=== PATIENT | female | born 1945 | race Caucasian/White ===

== ENCOUNTER 2016-06-19 16:24 | Inpatient (IN) | payer MEDICARE, MEDICAID ==
[~2016-06-19] VITALS: Ht 167.6 cm; Wt 80.7 kg
[2016-06-19] MEDS ORDERED: ONDANSETRON 4 MG/2 ML (SDV) Z0FRAN IVP PRN (16:45)
[2016-06-19] MEDS ORDERED: ACETAMINOPHEN 500 MG TAB (TYLENOL) PO PRN (16:45)
--- OUTSIDE RECORDS SUMMARY | 2016-06-19 18:21 | XMS REPORT | Continuity of Care Document ---
Author Author [facility] Address Unknown Phone Unavailable Allergies Medications Problems Procedures Results Encounters ACCT No. Visit Date/Time Discharge Status Pt. Type Provider Facility Loc./Unit Complaint [id number] 02/14/2015 11:56:18 02/14/2015 23: 59:59 CLS Outpatient Nohemi Cline [id number] 04/27/2014 08:45:00 04/27/2014 23: 59:59 CLS Outpatient Blanche Mckinney [id number] 04/04/2015 16:30:14 ACT Outpatient Terrence Acevedo [id number] 03/31/2015 15:09:03 ACT Outpatient Blanche Mckinney
[2016-06-19] MEDS ORDERED: CATHETER FLUSH 10 ML SYR IV PRN (18:30)
[2016-06-19 18:42] VITALS: BP 111/62
--- NOTE | 2016-06-19 18:52 | Diagnostic Imaging Report ---
INDICATION: Respiratory distress. FINDINGS: The heart is enlarged with some prominence of the central vessels. There is perihilar mixed interstitial and airspace opacity with crowding of the lung markings and a poor inspiratory volume. There is a suggestion of at least small bilateral effusions with no pneumothorax. IMPRESSION: Poor inspiratory volume; however, there is a suggestion of a failure pattern or sequelae of hypervolemia with suspicion for perihilar edema, cardiomegaly, and likely tiny pleural effusions. Dictated by: Dictated on workstation # [id number]
[2016-06-19 19:00] VITALS: BP 111/68
[2016-06-19] MEDS: DILTIAZEM DRIP 100 MG in SODIUM CHLORIDE (ADD-VANTAGE) 100 ML IV SCH (19:08)
[2016-06-19] MEDS: NS IV 1000 ML 1,000 ML IV SCH (19:08)
[2016-06-19 20:00] VITALS: BP 105/84
[2016-06-19 20:44] LABS: BASOPHILS % (AUTO) 0 % (0-10); EOSINOPHILS % (AUTO) 0 % (0-10); LYMPHOCYTES # (AUTO) 1.3 X 10^3 (1.0-4.0); LYMPHOCYTES % (AUTO) 15 % (12-44); MEAN CORPUSCULAR HEMOGLOBIN 27 PG (25-34); MEAN CORPUSCULAR HGB CONC 33 G/DL (32-36); MEAN CORPUSCULAR VOLUME 80 FL (80-99); MEAN PLATELET VOLUME 9.7 FL (7.4-10.4); MONOCYTES # (AUTO) 0.8 X 10^3 (0.0-1.0); MONOCYTES % (AUTO) 10 % (0-12); NEUTROPHILS # (AUTO) 6.4 X 10^3 (1.8-7.8); NEUTROPHILS % (AUTO) 76 % (42-75); PLATELET COUNT 323 10^3/uL (130-400); RED BLOOD COUNT 4.12 10^6/uL (4.35-5.85); RED CELL DISTRIBUTION WIDTH 16.3 % (10.0-14.5); WHITE BLOOD COUNT 8.5 10^3/uL (4.3-11.0)
[2016-06-19 20:56] LABS: INR 3.1 (0.8-1.4); PROTHROMBIN TIME PATIENT 31.8 SEC (12.2-14.7)
[2016-06-19 21:00] VITALS: BP 125/79
[2016-06-19] MEDS: inSUlin ASPART (NovoLOG) 1 UNIT/0.01 ML (CHARGE PER UNIT) SC SCH (21:00)
[2016-06-19 21:03] LABS: ALBUMIN 3.4 G/DL (3.2-4.5); BILIRUBIN,TOTAL 0.8 MG/DL (0.1-1.0); CALCIUM 8.3 MG/DL (8.5-10.1); CREATININE SERUM 1.77 MG/DL (0.60-1.30); POTASSIUM 4.5 MMOL/L (3.6-5.0); TOTAL PROTEIN 6.8 G/DL (6.4-8.2)
[2016-06-19 22:00] VITALS: BP 129/88
[2016-06-19 23:00] VITALS: BP 95/68
[2016-06-20] VITALS (22 sets, daily range): BP systolic 89–148; BP diastolic 47–121
[2016-06-20] MEDS: NS IV 1000 ML 1,000 ML IV SCH ×2 (02:19→13:20)
[2016-06-20 02:31] LABS: KETONES,URINE 1+ (NEGATIVE); LEUKOCYTE ESTERASE ,URINE 3+ (NEGATIVE); NITRITE,URINE NEGATIVE (NEGATIVE); PH,URINE 7 (5-9); PROTEIN,URINE 4+ (NEGATIVE); UROBILINOGEN,URINE 4 MG/DL (NORMAL)
[2016-06-20 02:44] LABS: BILIRUBIN,URINE 1+ (NEGATIVE); WBC,URINE 50-100 /HPF
[2016-06-20 04:30] LABS: BASOPHILS % (AUTO) 0 % (0-10); EOSINOPHILS # (AUTO) 0.1 10^3/uL (0.0-0.3); EOSINOPHILS % (AUTO) 1 % (0-10); LYMPHOCYTES # (AUTO) 1.1 X 10^3 (1.0-4.0); LYMPHOCYTES % (AUTO) 18 % (12-44); MEAN CORPUSCULAR HEMOGLOBIN 27 PG (25-34); MEAN CORPUSCULAR HGB CONC 34 G/DL (32-36); MEAN CORPUSCULAR VOLUME 79 FL (80-99); MEAN PLATELET VOLUME 10.1 FL (7.4-10.4); MONOCYTES # (AUTO) 0.7 X 10^3 (0.0-1.0); MONOCYTES % (AUTO) 12 % (0-12); NEUTROPHILS # (AUTO) 4.3 X 10^3 (1.8-7.8); NEUTROPHILS % (AUTO) 70 % (42-75); PLATELET COUNT 322 10^3/uL (130-400); RED BLOOD COUNT 3.87 10^6/uL (4.35-5.85); WHITE BLOOD COUNT 6.1 10^3/uL (4.3-11.0)
[2016-06-20 04:51] LABS: CALCIUM 8.2 MG/DL (8.5-10.1); CREATININE SERUM 1.72 MG/DL (0.60-1.30); MAGNESIUM 1.3 MG/DL (1.8-2.4); PHOSPHORUS 4.9 MG/DL (2.3-4.7); POTASSIUM 4.1 MMOL/L (3.6-5.0)
[2016-06-20] MEDS: KCL 20 MEQ TAB (K-DUR) PO SCH (05:03)
[2016-06-20] MEDS: POTASSIUM CL 10MEQ/50ML IVPB 50 ML IV SCH (05:03)
[2016-06-20] MEDS: inSUlin ASPART (NovoLOG) 1 UNIT/0.01 ML (CHARGE PER UNIT) SC SCH ×4 (05:04→21:00)
[2016-06-20] MEDS: MAGNESIUM 1 GM/100 ML IVPB 100 ML IV SCH ×3 (06:00→07:57)
--- NOTE | 2016-06-20 06:56 | Pulmonary Consultation ---
History of Present Illness History of Present Illness Date of Consultation 06/20/16 06:51 Date of Admission History of Present Illness Direct admit secondary to Afib. Cardiology is following. I am consulted for ICU management. Allergies and Home Medications Allergies Coded Allergies: Penicillins (Verified Allergy, Unknown, 06/19/16) pioglitazone (Verified Allergy, Unknown, 06/19/16) pramipexole (Verified Allergy, Unknown, 06/19/16) ropinirole (Verified Allergy, Unknown, 06/19/16) Home Medications Calcium Carbonate/Vitamin D3 1 Each Tablet, 1 TAB PO BID, (Reported) Clonazepam 0.5 Mg Tablet, 0.25 MG PO BID, (Reported) TAKES 1/2 OF A (0.5 MG) TABLET Diltiazem HCl 240 Mg Cap.er.24h, 240 MG PO DAILY for 30 Days Prescribed by: OLI DIEGO on 06/24/16 1149 Duloxetine HCl 60 Mg Capsule.dr, 60 MG PO DAILY, (Reported) Glimepiride 2 Mg Tablet, 2 MG PO DAILY, (Reported) Magnesium Hydroxide 400 Mg/5 Ml Oral.susp, 30 ML PO DAILY, (Reported) Metformin HCl 500 Mg Tab.er.24h, 1,000 MG PO BID, (Reported) TAKES 2 (500 MG) TABLETS Metoprolol Succinate 50 Mg Tab.er.24h, 50 MG PO BID for 30 Days Prescribed by: OLI DIEGO on 06/24/16 1149 Omeprazole 20 Mg Capsule.dr, 20 MG PO DAILY, (Reported) Pravastatin Sodium 80 Mg Tablet, 80 MG PO HS, (Reported) Warfarin Sodium 2 Mg Tablet, 4 MG PO DAILY@1800 for 30 Days Prescribed by: OLI DIEGO on 06/24/16 1149 Past Dhgrjmo-Wsccns-Fiorxq Hx Patient Social History Alcohol Use: Denies Use Recreational Drug Use: No Smoking Status: Never a Smoker Recent Foreign Travel: No Contact w/Someone Who Travel: No Recent Infectious Disease Expo: No Recent Hopitalizations: No Physical Abuse Screen: No Sexual Abuse: No Immunizations Up To Date Date of Pneumonia Vaccine: Aug 17, 2014 Date of Influenza Vaccine: Feb 17, 2016 Seasonal Allergies Seasonal Allergies: No Reproductive System Sexually Transmitted Disease: No HIV/AIDS: No HEENT Hearing Impairment: Hard of Hearing Review of Systems Constitutional: Malaise, Weakness, No: Chills, Fever, Other, Sweats Respiratory: Cough, Dry, Shortness of breath Cardiovascular: Lt Headedness, No: Chest Pain, Edema, Orthopnea, Other, Palpitations, Paroxysmal Noc. Dyspnea Gastrointestinal: No: Abdominal Pain, Constipation, Diarrhea, Hematochezia, Melena, Nausea, Other, Vomiting Neurological: Incoordination, Weakness Exam Exam Vital Signs Date Time Temp Pulse Resp B/P Pulse Ox O2 Delivery O2 Flow Rate FiO2 06/20/16 06:00 89 99/66 95 Room Air 06/20/16 05:00 94 128/84 97 Room Air 06/20/16 04:00 98.0 06/20/16 04:00 95 2.00 06/20/16 04:00 87 94/47 97 Room Air 06/20/16 03:00 90 120/96 95 Room Air 06/20/16 02:00 93 129/71 96 Room Air 06/20/16 01:00 92 109/81 93 Room Air 06/20/16 01:00 70 06/20/16 00:00 97.6 06/20/16 00:00 93 06/20/16 00:00 78 23 104/52 91 Room Air 06/19/16 23:00 75 22 95/68 92 Room Air 06/19/16 22:00 86 19 129/88 94 Room Air 06/19/16 21:00 91 22 125/79 91 Room Air 06/19/16 20:00 97.9 80 20 105/84 92 Room Air 06/19/16 20:00 94 06/19/16 19:08 96 111/68 06/19/16 19:00 84 35 111/68 92 Room Air 06/19/16 19:00 84 06/19/16 18:42 98.5 89 16 111/62 95 Room Air I & O 06/20/16 07:00 Intake Total 250 ml Output Total 300 ml Balance -50 ml General Appearance: No Apparent Distress, WD/WN, Anxious HEENT: PERRL/EOMI Neck: Full Range of Motion, Normal Inspection, Non Tender, Supple Respiratory: No Accessory Muscle Use, No Respiratory Distress, Decreased Breath Sounds Neurologic/Psychiatric: Alert, Oriented x3 Skin: Normal Color, Warm/Dry Results Lab Laboratory Tests 06/19/16 20:35 06/20/16 00:55 06/20/16 04:08 Assessment/Plan Assessment/Plan Afib - on Cardizem gtt Hypomagnesium -replace Renal failure with decrease urine output -Continue IVF 100cc/hr Clinical Quality Measures DVT/VTE Risk/Contraindication: Risk Factor Score Per Nursin RFS Level Per Nursing on Admit: 2=Moderate HELADIO LINDSAY DO Jun 20, 2016 06:56
--- NOTE | 2016-06-20 08:56 | Diagnostic Imaging Report ---
INDICATION: Atrial fibrillation. Compared 06/19/2016. FINDINGS: The heart is enlarged and may be slightly increased from prior; however, there is improved inspiratory volume with resolving perihilar and basilar atelectasis and no substantial overdistention of vascularity. IMPRESSION: Heart size similar, may be slightly increased, however, other changes all favorable. Improved basilar expansion. Resolving atelectasis. Resolving vascular congestion. No pneumothorax. Dictated by: Dictated on workstation # [id number]
--- NOTE | 2016-06-20 09:34 | History & Physical-Hospitalist ---
HPI History of Present Illness: HPI/Chief Complaint CC: Atrial fibrillation with rapid ventricular response HPI: This is a 70-year-old white female shelter patient of Dr. Bee and os week ago with a past medical history of diabetes mellitus chronic renal insufficiency and dementia with mild mental retardation the presents to the [facility] ICU as a direct admission from [facility] unit. She had originally been set to be admitted to the senior unit for behavior problems and depression that detoured to ICU at [facility] due to age fibrillation with rapid ventricular response placed on Cardizem drip overnight but hypotension was noted in that drip was managed gently due to the fact of the hypotension. She was placed on low dose Cardizem a 60 MG that she was on at home in addition to very gentle dose of Lopressor 25 MG by mouth 1 and then 1 dose of digoxin of 125 g but then she was transferred the [facility] began having hypotension with mild dizziness so she was given IV fluids of normal saline at 100 mL an hour and monitor closely throughout the day and overall improved received 1 more dose of 125 g of digoxin but then began getting out of bed and more active and her heart rate resumed to the 140 range. Her hypotension precluded me for managing this without cardiology expertise so she was sent to [facility] even though she is DO NOT RESUSCITATE due to the fact that the A. fib with RVR required management from a rhythm specialist. Source: RN/MD Exam Limitations: physical impairment Date Seen 06/20/16 Attending Physician Edna Willis DO PCP Casper Bee DO Referring Physician Date of Admission Jun 19, 2016 at 18:05 Home Medications & Allergies Home Medications Reviewed patient Home Medication Reconciliation Form Allergies Coded Allergies: Penicillins (Verified Allergy, Unknown, 06/19/16) pioglitazone (Verified Allergy, Unknown, 06/19/16) pramipexole (Verified Allergy, Unknown, 06/19/16) ropinirole (Verified Allergy, Unknown, 06/19/16) Past Nahkajk-Mmvsfu-Vvnyev Hx Patient Social History Marrital Status: Employed/Student: retired Alcohol Use: Denies Use Recreational Drug Use: No Smoking Status: Never a Smoker Physical Abuse Screen: No Sexual Abuse: No Recent Foreign Travel: No Contact w/other who traveled: No Recent Hopitalizations: No Recent Infectious Disease Expo: No Immunizations Up To Date Date of Pneumonia Vaccine: Aug 17, 2014 Date of Influenza Vaccine: Feb 17, 2016 Seasonal Allergies Seasonal Allergies: No Surgeries HX Surgeries: No Respiratory Hx Respiratory Disorders: No Cardiovascular Hx Cardiovascular Disorders: Yes Cardiac Disorders: Atrial Fibrillation, High Cholesterol, Hypertension Neurological Hx Neurological Disorders: Yes Neurological Disorders: Dementia Reproductive System Sexually Transmitted Disease: No HIV/AIDS: No Genitourinary Hx Genitourinary Disorders: Yes Genitourinary Disorders: Renal Failure Gastrointestinal Hx Gastrointestinal Disorders: Yes Gastrointestinal Disorders: Chronic Constipation Musculoskeletal Hx Musculoskeletal Disorders: No Endocrine Hx Endocrine Disorders: Yes Endocrine Disorders: Diabetes, Insulin dep HEENT HX ENT Disorders: No Hearing Impairment: Hard of Hearing Cancer Hx Cancer: Yes Cancer: Uterine Psychosocial Hx Psychiatric Problems: Yes Behavioral Health Disorders: Anxiety, Depression Integumentary HX Skin/Integumentary Disorder: No Reviewed Nursing Assessment Reviewed/Agree w Nursing PMH: Yes Review of Systems ROS-Unable to Obtain: patient with dementia and cognitive decline unable to ascertain Constitutional: see HPI Physical Exam Physical Exam Vital Signs Vital Sign - Last 12Hours 06/19/16 18:42 Temp 98.5 Pulse 89 Resp 16 B/P 111/62 Pulse Ox 95 O2 Delivery Room Air Capillary Refill : General Appearance: No Apparent Distress WD/WN Chronically ill Obese Eyes: Bilateral Eye Normal Inspection, Bilateral Eye PERRL HEENT: PERRL/EOMI Normal ENT Inspection Pharynx Normal Neck: Full Range of Motion Normal Inspection Non Tender Supple Carotid Bruit Respiratory: Chest Non Tender Lungs Clear Normal Breath Sounds No Accessory Muscle Use No Respiratory Distress Cardiovascular: No Edema No Gallop No JVD No Murmur Normal Peripheral Pulses Irregularly Irregular Tachycardia Gastrointestinal: Normal Bowel Sounds No Organomegaly No Pulsatile Mass Non Tender Soft Back: Normal Inspection No CVA Tenderness No Vertebral Tenderness Extremity: Normal Capillary Refill Normal Inspection Normal Range of Motion Non Tender No Calf Tenderness No Pedal Edema Neurologic/Psychiatric: Alert No Motor/Sensory Deficits Normal Mood/Affect Disoriented x3 Skin: Normal Color Warm/Dry Lymphatic: No Adenopathy Results Results/Procedures Lab Laboratory Tests 06/19/16 20:35 06/20/16 00:55 06/20/16 04:08 Assessment/Plan Admission Diagnosis Assessment: Age fibrillation with rapid ventricular response with hypotension limiting rate control meds to [facility] transferred to ICU for higher level care and cardiology expertise Dementia Mental retardation Diabetes mellitus Acute UTI Elevated BNP likely due to volume overload Hypertension history on low-dose lisinopril Multiple falls Severe neuropathy 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
[2016-06-20] MEDS: cefTRIAXone INJECTION 1,000 MG in NS (IVPB) 50 ML IV SCH (10:30)
[2016-06-20] MEDS ORDERED: DILT60CA PO (10:31)
[2016-06-20] MEDS ORDERED: CALC1TAB PO (10:31)
[2016-06-20] MEDS ORDERED: GLIM2TAB PO (10:31)
[2016-06-20] MEDS ORDERED: MAGN400O7 PO (10:31)
[2016-06-20] MEDS ORDERED: DULO60CA58 PO (10:31)
[2016-06-20] MEDS ORDERED: OMEP20CA12 PO (10:31)
[2016-06-20] MEDS ORDERED: LISI-556 PO (10:31)
[2016-06-20] MEDS ORDERED: HYDR12.5 PO (10:31)
[2016-06-20] MEDS ORDERED: CLON0.5T3 PO (10:31)
[2016-06-20] MEDS ORDERED: PRAV80TA2 PO (10:31)
[2016-06-20] MEDS ORDERED: METF500T8 PO (10:31)
[2016-06-20] MEDS ORDERED: WARF2.5T8 PO (10:31)
[2016-06-20] MEDS ORDERED: DILTIAZEM SR 90 MG (CARDIZEM LA) PO SCH (11:30)
[2016-06-20] MEDS: DILTIAZEM DRIP 100 MG in SODIUM CHLORIDE (ADD-VANTAGE) 100 ML IV SCH (11:47)
[2016-06-20] MEDS: DILTIAZEM 30 MG (CARDIZEM) TAB PO SCH ×2 (13:20→18:00)
[2016-06-20] MEDS: fentaNYL INJECTION 100 MCG/2 ML AMP IVP PRN (16:05)
[2016-06-20] MEDS: warFARin 2.5 MG (COUMADIN) TAB PO SCH (18:00)
--- NOTE | 2016-06-20 21:55 | Consultation-Cardiology ---
HPI-Cardiology Cardiology Consultation: Date of Consultation 06/20/16 Date of Admission Attending Physician Edna Willis DO Admitting Physician Casper Bee DO Consulting Physician Susannah MURGUIA MD HPI: Chief Complaint: atrial fibrillation this is a 70-year-old lady who was seen in the morning today. She has history of atrial fibrillation. she presented with atrial fibrillation with rapid ventricular rate and associated hypotension. She was given Cardizem infusion as well as digoxin. Review of Systems-Cardiology Review of Systems Constitutional: No As described under HPI, No no symptoms reported, No chills, No fever, No lightheadedness, No malaise, No tiredness, No weight loss, No weight gain, No other Eyes: No As described under HPI, No no symptoms reported, No blindness, No blurred vision, No contact lenses, No drainage, No decreased acuity, No foreign body sensation, No glasses, No inflammation, No pain, No photophobia, No previous injury, No shadows, No tunnel vision, No other, No vision change Ears/Nose/Throat: No As described under HPI, No no symptoms reported, No chronic hearing loss, No epistaxis, No ear discharge, No ear pain, No loose teeth, No mouth pain, No mouth swelling, No nasal drainage, No nose pain, No recent hearing loss, No throat pain, No throat swelling, No ulcerations, No other Respiratory: No no symptoms reported, No As described under HPI, No cough, No orthopnea, No shortness of breath, No SOB with excertion, No SOB at rest, No stridor, No wheezing, No other Cardiovascular: irregular heart rate palpitations Gastrointestinal: No no symptoms reported, No As described under HPI, No abdomen distended, No abdominal pain, No blood streaked bowels, No constipation , No diarrhea, No difficulty swallowing, No nausea, No poor appetite, No poor fluid intake, No rectal bleeding, No vomiting, No other, No nausea/vomiting/ diarrhea, No stool coloration changes TYK-Jaxjie-Cttkyx Hx Patient Social History Marrital Status: Employed/Student: retired Alcohol Use: Denies Use Recreational Drug Use: No Smoking Status: Never a Smoker Recent Foreign Travel: No Recent Infectious Disease Expo: No Physical Abuse Screen: No Sexual Abuse: No Immunizations Up To Date Date of Pneumonia Vaccine: Aug 17, 2014 Date of Influenza Vaccine: Feb 17, 2016 Past Medical History PMH As described under Assessment. Allergies and Home Medications Allergies Coded Allergies: Penicillins (Verified Allergy, Unknown, 06/19/16) pioglitazone (Verified Allergy, Unknown, 06/19/16) pramipexole (Verified Allergy, Unknown, 06/19/16) ropinirole (Verified Allergy, Unknown, 06/19/16) Home Medications Calcium Carbonate/Vitamin D3 1 Each Tablet 1 TAB PO BID (Reported) Clonazepam 0.5 Mg Tablet 0.25 MG PO BID (Reported) TAKES 1/2 OF A (0.5 MG) TABLET Diltiazem HCl 60 Mg Cap.er.12h 60 MG PO BID (Reported) Duloxetine HCl 60 Mg Capsule.dr 60 MG PO DAILY (Reported) Glimepiride 2 Mg Tablet 2 MG PO DAILY (Reported) Hydrochlorothiazide 12.5 Mg Capsule 12.5 MG PO DAILY (Reported) Lisinopril 5 Mg Tablet 5 MG PO DAILY (Reported) Magnesium Hydroxide 400 Mg/5 Ml Oral.susp 30 ML PO DAILY (Reported) Metformin HCl 500 Mg Tab.er.24h 1,000 MG PO BID (Reported) TAKES 2 (500 MG) TABLETS Omeprazole 20 Mg Capsule.dr 20 MG PO DAILY (Reported) Pravastatin Sodium 80 Mg Tablet 80 MG PO HS (Reported) Warfarin Sodium 2.5 Mg Tablet 2.5 MG PO DAILY (Reported) Physical Exam-Cardiology Physical Exam Vital Signs/I&O Vital Sign - Last 12Hours 06/20/16 06/20/16 06/20/16 06/20/16 10:00 11:00 11:47 11:47 Pulse 92 97 92 Resp 20 B/P 124/76 136/121 Pulse Ox 92 O2 Delivery Room Air Room Air 06/20/16 06/20/16 06/20/16 06/20/16 12:00 12:36 13:00 14:00 Pulse 105 84 B/P 133/76 133/87 Pulse Ox 96 92 91 O2 Delivery Room Air Room Air 06/20/16 06/20/16 06/20/16 16:00 16:45 17:45 Pulse 75 B/P 116/72 143/97 Pulse Ox 96 94 O2 Delivery Room Air Room Air Intake and Output 06/20/16 00:00 Intake Total 100 ml Balance 100 ml Capillary Refill : Constitutional: No appears stated age, No AAO x 3, No apparent distress, No PERRL, No well-developed, No well-nourished, No other HEENT: No PERRL, No normal ENT inspection, No TMs normal, No pharynx normal, No scleral icterus (R), No scleral icterus (L), No pale conjunctivae (R), No pale conjunctivae (L), No photophobia, No TM abnormal (R), No TM abnormal (L), No pharyngeal erythema, No tonsillar exudate, No other, No discharge, No EOMI, No hearing is well preserved, No hard of hearing, No oral hygience is good, No ulceration, No xanthelasmas are seen Neck: No non-tender, No full range of motion, No supple, No normal inspection, No carotid bruit, No limited range of motion, No lymphadenopathy (R), No lymphadenopathy (L), No tender lateral, No tender midline, No thyromegaly, No other, No carotid pulses are 2 + bilaterally, No with good upstrokes Respiratory: No accessory muscle use, No respiratory distress, No chest tender , No chest expansion is symmetric, No chest is bilaterally symmetric, No lungs clear to percussion, No lungs clear to auscultation, No crackles, No rhonchi, No rales, No stridor, No wheezing, No pleural rub, No other Cardiovascular: irregularly irregular Gastrointestinal: No tender, No soft, No round, No distended, No pulsatile mass , No organomegaly, No guarding, No rebound, No tenderness, No hernia, No mass, No audible bowel sounds, No abnormal bowel sounds, No abdominal bruits, No spleenomegaly, No other Rectal: deferred Extremities: No normal range of motion, No non-tender, No normal inspection, No pedal edema, No calf tenderness, No normal capillary refill, No pelvis stable , No calf tenderness, No inflammation, No pedal edema, No slow capillary refill , No swelling, No other, No abrasion, No clubbing, No cyanosis, No ecchymosis, No laceration, No no lower extremity edema bilateral, No significant edema, No tenderness, No wound Neurologic/Psychiatric: No career development facilitator II-XII nml as tested, No no motor/sensory deficits, No alert, No normal mood/affect, No oriented x 3, No abnormal cerebellar tests, No abnormal career development facilitator II-XII, No abnormal gait, No aphasia, No EOM palsy, No facial droop, No motor weakness, No sensory deficit, No depressed affect, No disoriented x 3, No other, No grossly intact, No power is 5/5 both on sides Skin: No normal color, No warm/dry, No cyanosis, No cool, No diaphoresis, No damp, No ecchymosis, No jaundice, No mottled, No pallor, No rash, No tattoos/ piercings, No ulcerations, No rash on exposed areas, No ulcerations on exposed areas, No other Data Review Labs Laboratory Tests 06/20/16 00:55: Sodium Level 124*L 06/20/16 02:20: Urine Bacteria LARGEH, Urine Bilirubin 1+H, Urine Casts NONE, Urine Clarity VERY CLOUDYH, Urine Color AMBERH, Urine Crystals NONE, Urine Culture Indicated YES, Urine Glucose (UA) NEGATIVE, Urine Ketones 1+H, Urine Leukocyte Esterase 3+ H, Urine Mucus SMALLH, Urine Nitrite NEGATIVE, Urine Protein 4+, Urine RBC 10- 25H, Urine RBC (Auto) 3+H, Urine Specific [place] 1.015L, Urine Squamous Epithelial Cells 5-10, Urine Urobilinogen 4H, Urine WBC 50-100H, Urine pH 7 06/20/16 04:08: Sodium Level 124*L, Anion Gap 12, BUN/Creatinine Ratio 23, Basophils # (Auto) 0.0, Basophils (%) (Auto) 0, Blood Urea Nitrogen 39H, Calcium Level 8.2L, Carbon Dioxide Level 19L, Chloride Level 93L, Creatinine 1.72H, Eosinophils # ( Auto) 0.1, Eosinophils (%) (Auto) 1, Estimat Glomerular Filtration Rate 29, Glucose Level 128H, Hematocrit 31L, Hemoglobin 10.4L, Lymphocytes # (Auto) 1.1, Lymphocytes (%) (Auto) 18, Magnesium Level 1.3L, Mean Corpuscular Hemoglobin 27 , Mean Corpuscular Hemoglobin Concent 34, Mean Corpuscular Volume 79L, Mean Platelet Volume 10.1, Monocytes # (Auto) 0.7, Monocytes (%) (Auto) 12, Neutrophils # (Auto) 4.3, Neutrophils (%) (Auto) 70, Phosphorus Level 4.9H, Platelet Count 322, Potassium Level 4.1, Red Blood Count 3.87L, Red Cell Distribution Width 16.0H, White Blood Count 6.1 06/20/16 11:24: Glucometer 195H 06/20/16 16:01: Glucometer 162H 06/20/16 21:12: Glucometer 180H Microbiology 06/19/16 Blood Culture - Preliminary, Resulted No growth 06/20/16 Urine Culture - Preliminary, Resulted Gram Negative Eyad ECG Impression ECG Initial ECG Impression: Atrial Fibrillation A/P-Cardiology Assessment/Admission Diagnosis atrial fibrillation with rapid ventricular rate, hypotension Plan when I saw the patient in the morning her ventricular rate was much better controlled and blood pressure was in the normal range. Recommended starting by mouth medications and gradually transitioning off IV Cardizem. continue anticoagulation with Coumadin. UTI sepsis- on IV ceftriaxone. Thank you for your consultation. Please call me if you have any questions. Larry Murguia MD, FACP, FACC, FSCAI, FHRS, CCDS Interventional Cardiology Cardiac Electrophysiology Vascular Medicine and Endovascular Interventions Clinical Quality Measures DVT/VTE Risk/Contraindication: Risk Factor Score Per Nursin RFS Level Per Nursing on Admit: 2=Moderate Susannah MURGUIA MD Jun 20, 2016 21:55
[2016-06-21] VITALS (12 sets, daily range): BP systolic 87–154; BP diastolic 60–87
[2016-06-21] MEDS: DILTIAZEM 30 MG (CARDIZEM) TAB PO SCH ×3 (00:09→11:58)
[2016-06-21] MEDS: fentaNYL INJECTION 100 MCG/2 ML AMP IVP PRN (00:17)
[2016-06-21] MEDS: NS IV 1000 ML 1,000 ML IV SCH ×2 (02:06→09:58)
[2016-06-21 05:11] LABS: ANION GAP 10 MMOL/L (5-14); BLOOD UREA NITROGEN 22 MG/DL (7-18); BUN/CREATININE RATIO 25; CARBON DIOXIDE 22 MMOL/L (21-32); CHLORIDE 95 MMOL/L (98-107); CREATININE SERUM 0.88 MG/DL (0.60-1.30); GFR ESTIMATED > 60; GLUCOSE 147 MG/DL (70-105); MAGNESIUM 1.5 MG/DL (1.8-2.4); POTASSIUM 3.6 MMOL/L (3.6-5.0); SODIUM 127 MMOL/L (135-145)
[2016-06-21] MEDS: inSUlin ASPART (NovoLOG) 1 UNIT/0.01 ML (CHARGE PER UNIT) SC SCH ×4 (05:26→20:46)
[2016-06-21] MEDS: POTASSIUM CL 10MEQ/50ML IVPB 50 ML IV SCH (05:28)
[2016-06-21] MEDS: KCL 20 MEQ TAB (K-DUR) PO SCH (05:28)
[2016-06-21] MEDS: MAGNESIUM 1 GM/100 ML IVPB 100 ML IV SCH ×3 (05:28→06:46)
[2016-06-21] MEDS ORDERED: KCL 20 MEQ TAB (K-DUR) PO ONE (05:30)
--- NOTE | 2016-06-21 07:11 | Pulmonary Progress Note ---
Subjective Subjective/Events-last exam No complications noted currently. Exam Exam Vital Signs Date Time Temp Pulse Resp B/P Pulse Ox O2 Delivery O2 Flow Rate FiO2 06/21/16 06:00 106 149/76 97 Nasal Cannula 2.00 06/21/16 05:00 88 119/87 99 Nasal Cannula 2.00 06/21/16 04:00 97 2.00 06/21/16 04:00 101 133/82 95 Nasal Cannula 2.00 06/21/16 03:00 85 113/62 100 Nasal Cannula 2.00 06/21/16 02:00 98 132/74 95 Nasal Cannula 2.00 06/21/16 01:00 96 06/21/16 01:00 96 87/60 94 Nasal Cannula 2.00 06/21/16 00:00 97.9 108 154/87 97 Nasal Cannula 2.00 06/21/16 00:00 96 06/20/16 23:41 2.00 06/20/16 23:00 109 138/86 97 Nasal Cannula 2.00 06/20/16 22:17 106 148/84 96 Nasal Cannula 2.00 06/20/16 22:00 97 89/59 95 Nasal Cannula 2.00 06/20/16 21:00 92 119/101 99 Nasal Cannula 2.00 06/20/16 20:42 98 98 Nasal Cannula 2.00 06/20/16 20:00 96 06/20/16 20:00 98.5 91 130/91 93 Room Air 06/20/16 19:00 98 06/20/16 19:00 98 122/81 96 Room Air 06/20/16 17:45 75 143/97 94 Room Air 06/20/16 16:45 116/72 Room Air 06/20/16 16:00 96 06/20/16 14:00 84 133/87 91 Room Air 06/20/16 13:00 133/76 92 Room Air 06/20/16 12:36 105 06/20/16 12:00 96 06/20/16 11:47 92 06/20/16 11:47 97 20 06/20/16 11:00 136/121 92 Room Air 06/20/16 10:00 92 124/76 Room Air 06/20/16 09:00 94 107/81 Room Air 06/20/16 08:00 96 1.00 06/20/16 08:00 96 116/56 95 Room Air I & O 06/21/16 07:00 Intake Total 1415 ml Output Total 1100 ml Balance 315 ml General Appearance: No Apparent Distress WD/WN Chronically ill Obese HEENT: PERRL/EOMI Normal ENT Inspection Pharynx Normal Neck: Full Range of Motion Normal Inspection Non Tender Supple Carotid Bruit Respiratory: Chest Non Tender Lungs Clear Normal Breath Sounds No Accessory Muscle Use No Respiratory Distress Cardiovascular: No Edema No Gallop No JVD No Murmur Normal Peripheral Pulses Irregularly Irregular Tachycardia Extremity: Normal Capillary Refill Normal Inspection Normal Range of Motion Non Tender No Calf Tenderness No Pedal Edema Neurologic/Psychiatric: Alert No Motor/Sensory Deficits Normal Mood/Affect Disoriented x3 Skin: Normal Color Warm/Dry Lymphatic: No Adenopathy Results Lab Laboratory Tests 06/19/16 20:35 06/20/16 00:55 06/20/16 04:08 06/21/16 04:25 Assessment/Plan Assessment/Plan Afib - off Cardizem gtt Hypomagnesium -replace Renal failure with decrease urine output -Continue IVF 100cc/hr Pt is now off Cardizem gtt and can be transferred to floor if ok with cardiology. I am going to sign off please call with any questions. Clinical Quality Measures DVT/VTE Risk/Contraindication: Risk Factor Score Per Nursin RFS Level Per Nursing on Admit: 2=Moderate HELADIO LINDSAY DO Jun 21, 2016 07:11
[2016-06-21] MEDS: cefTRIAXone INJECTION 1,000 MG in NS (IVPB) 50 ML IV SCH (08:47)
--- NOTE | 2016-06-21 10:44 | Progress Note-Hospitalist ---
Progress Note HPI/CC on Admission CC: Atrial fibrillation with rapid ventricular response HPI: This is a 70-year-old white female [facility] Dr. Bee and os week ago with a past medical history of diabetes mellitus chronic renal insufficiency and dementia with mild mental retardation the presents to the [facility] ICU as a direct admission from [facility] behavioral unit. She had originally been set to be admitted to the senior unit for behavior problems and depression that detoured to ICU at [facility] due to age fibrillation with rapid ventricular response placed on Cardizem drip overnight but hypotension was noted in that drip was managed gently due to the fact of the hypotension. She was placed on low dose Cardizem a 60 MG that she was on at home in addition to very gentle dose of Lopressor 25 MG by mouth 1 and then 1 dose of digoxin of 125 g but then she was transferred the [facility] behavioral unit began having hypotension with mild dizziness so she was given IV fluids of normal saline at 100 mL an hour and monitor closely throughout the day and overall improved received 1 more dose of 125 g of digoxin but then began getting out of bed and more active and her heart rate resumed to the 140 range. Her hypotension precluded me for managing this without cardiology expertise so she was sent to [facility] even though she is DO NOT RESUSCITATE due to the fact that the A. fib with RVR required management from a rhythm specialist. 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 Dr. Diego informs pt that BP is much improved. Physical exam reveals increased HR of 130-140 w/activity No fever, vital stable, pleasant, confused but no change Irregular irregular rhythm with tachycardia of 103 bpm on my exam clear to auscultation bilaterally Laboratory Tests 06/21/16 04:25 Assessment: Age fibrillation with rapid ventricular response with hypotension limiting rate control meds to [facility] transferred to ICU for higher level care and cardiology expertise now off Cardizem drip that having rapid ventricular response with activity Dementia Mental retardation Diabetes mellitus Acute UTI E coli sensitive to Rocephin Elevated BNP likely due to volume overload Hypertension history on low-dose lisinopril Multiple falls Severe neuropathy 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 Consult Cardiology regarding increased HR. Maintain PO Cardizem per cardiology input Maintain on Rocephin for UTI await urine culture Fluid restriction for sodium level of 127 now on 1000 mL a day Monitor blood pressure closely Monitor closely due to elevated HR Return back to the senior behavioral unit for psych treatment as soon as possible Scribed by Yanick Olivo under the direct supervision of Dr. Diego. OLI DIEGO DO Jun 21, 2016 10:44
[2016-06-21] MEDS ORDERED: DILTIAZEM 180 MG (CARDIZEM CD) CAP PO ONE (12:43)
[2016-06-21] MEDS ORDERED: DILTIAZEM 180 MG (CARDIZEM CD) CAP PO NR (12:45)
[2016-06-21] MEDS ORDERED: meTOprolol TARTRATE 50 MG (LOPRESSOR) TAB PO NR (16:15)
[2016-06-21] MEDS: warFARin 2.5 MG (COUMADIN) TAB PO SCH (17:43)
[2016-06-21] MEDS ORDERED: HALOPERIDOL 5 MG/ML (HALDOL) AMP IM PRN (21:45)
[2016-06-21] MEDS: clonazePAM 0.5 MG (KlonoPIN) TAB PO PRN (23:42)
[2016-06-22] VITALS (7 sets, daily range): BP systolic 116–149; BP diastolic 71–107
[2016-06-22 04:20] LABS: BASOPHILS % (AUTO) 0 % (0-10); EOSINOPHILS # (AUTO) 0.1 10^3/uL (0.0-0.3); EOSINOPHILS % (AUTO) 2 % (0-10); LYMPHOCYTES # (AUTO) 1.1 X 10^3 (1.0-4.0); LYMPHOCYTES % (AUTO) 21 % (12-44); MEAN CORPUSCULAR HEMOGLOBIN 26 PG (25-34); MEAN CORPUSCULAR HGB CONC 33 G/DL (32-36); MEAN CORPUSCULAR VOLUME 80 FL (80-99); MEAN PLATELET VOLUME 9.4 FL (7.4-10.4); MONOCYTES # (AUTO) 0.6 X 10^3 (0.0-1.0); MONOCYTES % (AUTO) 11 % (0-12); NEUTROPHILS # (AUTO) 3.4 X 10^3 (1.8-7.8); NEUTROPHILS % (AUTO) 66 % (42-75); PLATELET COUNT 350 10^3/uL (130-400); RED BLOOD COUNT 4.28 10^6/uL (4.35-5.85); WHITE BLOOD COUNT 5.1 10^3/uL (4.3-11.0)
[2016-06-22 04:26] LABS: INR 1.7 (0.8-1.4)
[2016-06-22 04:41] LABS: ALANINE AMINOTRANSFERASE 68 U/L (0-55); ALBUMIN 3.4 G/DL (3.2-4.5); ANION GAP 10 MMOL/L (5-14); ASPARTATE AMINO TRANSFERASE 38 U/L (5-34); BILIRUBIN,TOTAL 0.7 MG/DL (0.1-1.0); BLOOD UREA NITROGEN 12 MG/DL (7-18); BUN/CREATININE RATIO 17; CALCIUM 8.4 MG/DL (8.5-10.1); CARBON DIOXIDE 25 MMOL/L (21-32); CHLORIDE 95 MMOL/L (98-107); CREATININE SERUM 0.71 MG/DL (0.60-1.30); GFR ESTIMATED > 60; GLUCOSE 152 MG/DL (70-105); MAGNESIUM 1.6 MG/DL (1.8-2.4); POTASSIUM 3.5 MMOL/L (3.6-5.0); SODIUM 130 MMOL/L (135-145); TOTAL PROTEIN 6.8 G/DL (6.4-8.2)
[2016-06-22] MEDS: DILTIAZEM DRIP 100 MG in SODIUM CHLORIDE (ADD-VANTAGE) 100 ML IV SCH (04:45)
[2016-06-22] MEDS: inSUlin ASPART (NovoLOG) 1 UNIT/0.01 ML (CHARGE PER UNIT) SC SCH ×4 (05:21→21:51)
[2016-06-22] MEDS: cefTRIAXone INJECTION 1,000 MG in NS (IVPB) 50 ML IV SCH (09:01)
[2016-06-22] MEDS ORDERED: meTOproloL SUCCINATE 50 MG (TOPROL XL) TAB PO SCH (09:45)
--- NOTE | 2016-06-22 10:20 | Progress Note-Hospitalist ---
Progress Note HPI/CC on Admission CC: Atrial fibrillation with rapid ventricular response HPI: This is a 70-year-old white female [facility] patient of Dr. Bee and os week ago with a past medical history of diabetes mellitus chronic renal insufficiency and dementia with mild mental retardation the presents to the [facility] ICU as a direct admission from [facility] behavioral unit. She had originally been set to be admitted to the senior unit for behavior problems and depression that detoured to ICU at [facility] due to age fibrillation with rapid ventricular response placed on Cardizem drip overnight but hypotension was noted in that drip was managed gently due to the fact of the hypotension. She was placed on low dose Cardizem a 60 MG that she was on at home in addition to very gentle dose of Lopressor 25 MG by mouth 1 and then 1 dose of digoxin of 125 g but then she was transferred the [facility] behavioral unit began having hypotension with mild dizziness so she was given IV fluids of normal saline at 100 mL an hour and monitor closely throughout the day and overall improved received 1 more dose of 125 g of digoxin but then began getting out of bed and more active and her heart rate resumed to the 140 range. Her hypotension precluded me for managing this without cardiology expertise so she was sent to [facility] even though she is DO NOT RESUSCITATE due to the fact that the A. fib with RVR required management from a rhythm specialist. 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 Murguia Review: Restarted Toprol XL of 50mg last night Cardizem CD 240 and top load 50 HR 108 and will likely come down, and pt may DC this weekend if able Patient Interview: Pt states that she feels better today. Dr. Diego informs pt that she will remain at [facility] a few more days in order to monitor cardiac complications, and will likely move to [place] on Saturday. Pt's bowels have not moved recently. Pt states that she has not been eating much. No fever, vital stable, pleasant, confused but no change Irregular irregular rhythm with tachycardia of 103 bpm on my exam clear to auscultation bilaterally Laboratory Tests 06/22/16 04:00 Assessment: Atrial fibrillation with rapid ventricular response with hypotension limiting rate control meds to [facility] transferred to ICU for higher level care and cardiology expertise now off Cardizem drip that having rapid ventricular response with activity now started on Toprol-XL 50 MG along with Cardizem 240 MG CD Dementia Mental retardation Diabetes mellitus Acute UTI E coli sensitive to Rocephin will finish on Saturday Elevated BNP likely due to volume overload Hypertension history on low-dose lisinopril Multiple falls Severe neuropathy 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 Cardizem CD 240 and top load 50 Started Toprol of 50 Move to 4th floor on telemetry. Maintain PO Cardizem per cardiology input Maintain on Rocephin for UTI until DC Saturday Fluid restriction for sodium level of 123 now on 1000 mL a day and 130 today Monitor blood pressure closely Monitor closely due to elevated HR Bowel regimen PT/OT Scribed by Yanick Olivo under the direct supervision of Dr. Diego. OLI DIEGO DO Jun 22, 2016 10:20
[2016-06-22] MEDS: DILTIAZEM 240 MG (CARDIZEM CD) CAP PO SCH (10:23)
[2016-06-22] MEDS ORDERED: FLEET ENEMA ADULT 1 EA BTL PR NR (10:49)
[2016-06-22] MEDS: LACTULOSE SYRUP 10GM/15ML (ENULOSE) 30ML UDC PO PRN (11:33)
[2016-06-22] MEDS: BISACODYL 10 MG SUPP (DULCOLAX) PR SCH ×2 (11:35→21:52)
--- NOTE | 2016-06-22 13:47 | Physical Therapy Evaluation ---
PT Evaluation-General Medical Diagnosis Admission Date Jun 19, 2016 at 18:05 Medical Diagnosis: weakness Onset Date: Jun 19, 2016 Therapy Diagnosis Therapy Diagnosis: impaired mobility, endurance Height/Weight Height (Feet): 5 Height (Inches): 6.00 Weight (Pounds): 179 Weight (Ounces): 0.0 Precautions Precautions/Isolations: Fall Prevention, Standard Precautions Referral Physician: Edna Willis DO Reason for Referral: Evaluation/Treatment Medical History Pertinent Medical History: Atrial Fib, DM, Dementia, HTN Additional Medical History high cholesterol, renal failure, chronic constipation, VIEJAS, anxiety, depression , mental retardation Current History Patient went [place] the hospital [place] with afib and RVR Reviewed History: Yes Social History Home: Snf Prior/Core FIM Prior Level of Function Functional [place] Measure 0=Not Assessed/NA 4=Minimal Assistance 1=Total Assistance 5=Supervision or Setup 2=Maximal Assistance 6=Modified [place] 3=Moderate Assistance 7=Complete [place] Bed Mobility: 6 Transfers (B,C,W/C) (FIM): 6 Gait: 6 Patient has a 4 wheeled walker that she says she used outside PT Evaluation-Current Subjective Patient in recliner pre tx, agrees to PT, she looks and acts confused and says over and over that she just doesn't feel right. Pain Numeric Pain Scale: 0-No Pain Pt/Family Goals "to feel better" Objective Patient Orientation: Person ROM/Strength ROM Lower Extremities WNL Strenght Lower Extremities right lower extremity 4/5 gross, left lower extremity 4+/5 gross Neuromuscular (Tone, Coordination, Reflexes) WNL Sensory Sensation Right Lower Extremit: Intact Sensation Left Lower Extremity: Intact Transfers Functional [place] Measure 0=Not Assessed/NA 4=Minimal Assistance 1=Total Assistance 5=Supervision or Setup 2=Maximal Assistance 6=Modified [place] 3=Moderate Assistance 7=Complete [place] Transfers (B, C, W/C) (FIM): 5 Sit to/from Stand: 5 cues for safety and hand placement, will try to pull up from the walker Gait Mode of Locomotion: Walk Anticipated Mode of Locomotion: Walk Gait (FIM): 5 Distance: 200' Gait Level of Assist: 5 Gait Persons Needed: 1 Gait Assistive Device: Walker 4 Wheeled Comments/Gait Description slow but steady, no LOB Balance Sitting Static: Normal Sitting Dynamic: Normal Standing Static: Good Standing Dynamic: Good Treatment bilateral seated lower extremity exercises x 20 (AP, hip flexion, LAQ) Assessment/Needs Patient has impairments in functional mobility, endurance Rehab Potential: Fair PT Seamless Tube Mill Operator Goals Half-Way Goals PT Seamless Tube Mill Operator Goals Time Frame: Jun 29, 2016 Transfers (B,C,W/C) (FIM): 6 Gait (FIM): 6 Distance: 300' Gait Assistive Device: Walker 4 Wheeled PT Plan Problem List Problem List: Activity Tolerance, Functional Strength, Safety, Balance, Gait, Transfer, Bed Mobility Treatment/Plan Treatment Plan: Continue Plan of Care Treatment Plan: Bed Mobility, Education, Functional Activity Yaakov, Functional Strength, Gait, Safety, Therapeutic Exercise, Transfers Treatment Duration: Jun 29, 2016 # of days/week 5-6 Visits Per Week: 5-6 Minutes/Day (M-F): 15-30 Minutes/Day (Sat/[place]): 15-30 Pt/Family Agrees w/Plan: Yes Safety Risks/Education Patient Education: Gait Training, Transfer Techniques, Safety Issues Teaching Recipient: Patient Teaching Methods: Demonstration, Discussion Response to Teaching: Reinforcement Needed Discharge Recommendations Plan Patient will perform bed mobility and transfer training, balance and endurance training, functional strengthening, stair training, gait training, education, to improve functional mobility and independence at home. Therapy D/C Recommendations: [facility]pc (TCU/NH) Time/GCodes Time In: 1325 Time Out: 1340 Total Billed Treatment Time: 15 Total Billed Treatment 1 visit EVL 15 min JASE MAR PT Jun 22, 2016 13:47
--- NOTE | 2016-06-22 14:07 | Occupational Therapy Eval ---
OT Evaluation-General/PLF Medical Diagnosis Admission Date Jun 19, 2016 at 18:05 Medical Diagnosis: weakness Onset Date: Jun 19, 2016 Therapy Diagnosis Therapy Diagnosis: decreased self care Height/Weight Height (Feet): 5 Height (Inches): 6.00 Weight (Pounds): 179 Weight (Ounces): 0.0 Precautions Precautions/Isolations: Fall Prevention, Standard Precautions Safety Interventions: Bed Exit Alarm Referral Physician: Edna Willis DO Medical History Pertinent Medical History: Atrial Fib, DM, Dementia, HTN, Renal Insufficiency Additional Medical History high cholesterol, chronic constipation, CHITINA, anxiety, depression, mental retardation Current History pt admitted with A-fib Reviewed History: Yes Social History Home: [facility] per chart, pt has been at [facility] Unit ADL-Prior Level of Function ADL PLOF Comments Pt states she uses 4WW, but is unable to provide further information regarding PLOF OT Current Status Subjective Pt sitting in chair after working with PT, agrees to therapy. Mental Status/Objective Patient Orientation: Person, Confused Current Glasses/Contacts: Yes Upper Extremity ROM Grossly WFL Upper Extremity Strength Grossly 4/5 ADL-Treatment ADL-Current Pt feeding self after set up. Pt demonstrates ability to doff/don socks with SBA. Sit to stand with supervision. Pt demonstrates ability to transfer with SBA. Pt sitting in chair with needs met and nurse aide present after session. Functional [place] Measure 0=Not Assessed/NA 4=Minimal Assistance 1=Total Assistance 5=Supervision or Setup 2=Maximal Assistance 6=Modified [place] 3=Moderate Assistance 7=Complete IndependenceIRFPAI Quality Coding Scale 6 Independent with activity with or without an assistive device 5 Patient requires set up or clean up by helper. Patient completes activity by themselves 4 Supervision or touching assist (CGA). [place] provide cues , steadying assist 3 The helper provides less than half the effort to complete the activity 2 The helper provides more than half the effort to complete the activity 1 Dependent. The helper does all the effort to complete an activity 7 Patient refused to complete or attempt activity 9 The patient did not perform the activity before the current illness or injury 88 Not attempted due to Medical conditions or safety concerns Eating (FIM): 5 Lower Body Dressing (FIM): 5 (socks only) Pt is confused and easily distracted Education OT Patient Education: Rehab process Teaching Recipient: Patient Teaching Methods: Discussion Response to Teaching: Reinforcement Needed OT Short Term Goals Short Term Goals 1=Demonstrate adherence to instructed precautions during ADL tasks. 2=Patient will verbalize/demonstrate understanding of assistive devices/ modifications for ADL. 3=Patient will improve strength/tolerance for activity to enable patient to perform ADL's. OT Director Enterprise Sales Goals Fdc Goals Time Frame: Jun 29, 2016 Eating (FIM): 6 Grooming(FIM): 6 Upper Body Dressing(FIM): 5 Lower Body Dressing(FIM): 5 Toileting(FIM): 6 Toilet/Commode Transfer(FIM): 6 Additional Goals: 1-Demonstrate ADL Tasks, 2-Verbalize Understanding, 3- ImproveStrength/Yaakov 1=Demonstrate adherence to instructed precautions during ADL tasks. 2=Patient will verbalize/demonstrate understanding of assistive devices/ modifications for ADL. 3=Patient will improve strength/tolerance for activity to enable patient to perform ADL's. OT Education/Plan Problem List/Assessment Assessment: Decreased Safety Aware, Decreased UE Strength, Dependent Transfers , Impaired Self-Care Skills Pt to benefit from skilled OT intervention for ADL training, transfers, and strengthening to increase level of independence and allow safe discharge plan. Discharge Recommendations Plan/Recommendations: Continue POC Treatment Plan/Plan of Care Treatment,Training & Education: Yes Patient would benefit from OT for education, treatment and training to promote independence in ADL's, mobility, safety and/or upper extremity function for ADL' s. Plan of Care: ADL Retraining, Functional Mobility, UE Funct Exercise/Act Treatment Duration: Jun 29, 2016 # of days/week 5 Visits Per Week: 5 Rehab Potential: Fair Time/GCodes Start Time: 13:40 Stop Time: 13:55 Total Time Billed (hr/min): 15 Billed Treatment Time 1 visit, EVL(15minutes) LAZARO PEGUERO OT Jun 22, 2016 14:07
[2016-06-22] MEDS ORDERED: warFARin 3 MG (COUMADIN) TAB PO SCH (18:00)
[2016-06-22] MEDS: meTOproloL SUCCINATE 50 MG (TOPROL XL) TAB PO SCH (21:51)
--- NOTE | 2016-06-22 22:28 | Cardiology Progress Note ---
Cardiology SOAP Progress Note Subjective: No cardiac complaints Objective: I&O/Vital Signs Vital Sign - Last 12Hours 06/22/16 06/22/16 06/22/16 06/22/16 12:18 15:20 19:00 20:00 Temp 97.4 96.2 Pulse 97 89 78 77 Resp 19 18 B/P 135/74 135/84 Pulse Ox 98 97 O2 Delivery Room Air Room Air Intake and Output 06/22/16 00:00 Intake Total 1800 ml Output Total 1800 ml Balance 0 ml Weight (Pounds): 179 Weight (Ounces): 0.0 Weight (Calculated Kilograms): 81.039569 Constitutional: No appears stated age, No AAO x 3, No apparent distress, No PERRL, No well-developed, No well-nourished, No other Respiratory: No accessory muscle use, No respiratory distress, No chest tender , No chest expansion is symmetric, No chest is bilaterally symmetric, No lungs clear to percussion, No lungs clear to auscultation, No crackles, No rhonchi, No rales, No stridor, No wheezing, No pleural rub, No other Cardiovascular: irregularly irregular Gastrointestional: No tender, No soft, No round, No distended, No pulsatile mass, No organomegaly, No guarding, No rebound, No tenderness, No hernia, No mass, No audible bowel sounds, No abnormal bowel sounds, No abdominal bruits, No spleenomegaly, No other Extremities: No normal range of motion, No non-tender, No normal inspection, No pedal edema, No calf tenderness, No normal capillary refill, No pelvis stable , No calf tenderness, No inflammation, No pedal edema, No slow capillary refill , No swelling, No other, No abrasion, No clubbing, No cyanosis, No ecchymosis, No laceration, No no lower extremity edema bilateral, No significant edema, No tenderness, No wound Neurologic/Psychiatric: No construction craft laborer II-XII nml as tested, No no motor/sensory deficits, No alert, No normal mood/affect, No oriented x 3, No abnormal cerebellar tests, No abnormal construction craft laborer II-XII, No abnormal gait, No aphasia, No EOM palsy, No facial droop, No motor weakness, No sensory deficit, No depressed affect, No disoriented x 3, No other, No grossly intact, No power is 5/5 both on sides Skin: No normal color, No warm/dry, No cyanosis, No cool, No diaphoresis, No damp, No ecchymosis, No jaundice, No mottled, No pallor, No rash, No tattoos/ piercings, No ulcerations, No rash on exposed areas, No ulcerations on exposed areas, No other Results/Procedures: Labs Laboratory Tests 06/22/16 04:00: Alanine Aminotransferase (ALT/SGPT) 68H, Albumin 3.4, Alkaline Phosphatase 73, Anion Gap 10, Aspartate Amino Transf (AST/SGOT) 38H, BUN/Creatinine Ratio 17, Basophils # (Auto) 0.0, Basophils (%) (Auto) 0, Blood Urea Nitrogen 12, Calcium Level 8.4L, Carbon Dioxide Level 25, Chloride Level 95L, Creatinine 0.71, Eosinophils # (Auto) 0.1, Eosinophils (%) (Auto) 2, Estimat Glomerular Filtration Rate > 60, Glucose Level 152H, Hematocrit 34L, Hemoglobin 11.3L, INR Comment 1.7H, Lymphocytes # (Auto) 1.1, Lymphocytes (%) (Auto) 21, Magnesium Level 1.6L, Mean Corpuscular Hemoglobin 26, Mean Corpuscular Hemoglobin Concent 33, Mean Corpuscular Volume 80, Mean Platelet Volume 9.4, Monocytes # (Auto) 0.6 , Monocytes (%) (Auto) 11, Neutrophils # (Auto) 3.4, Neutrophils (%) (Auto) 66, Platelet Count 350, Potassium Level 3.5L, Prothrombin Time 20.0H, Red Blood Count 4.28L, Red Cell Distribution Width 16.0H, Sodium Level 130L, Total Bilirubin 0.7, Total Protein 6.8, White Blood Count 5.1 06/22/16 10:52: Glucometer 177H 06/22/16 16:09: Glucometer 252H 06/22/16 21:37: Glucometer 221H Microbiology 06/19/16 Blood Culture - Preliminary, Resulted No growth 06/20/16 Urine Culture - Final, Complete Escherichia Coli A/P: Assessment/Dx: atrial fibrillation with rapid ventricular rate, hypotension Plan: off IV Cardizem. variable ventricular response. Dose of by mouth Cardizem increased to 240 mg every day. long-acting metoprolol added at 50 mg twice a day. continue anticoagulation with Coumadin. UTI sepsis- on IV ceftriaxone. Thank you for your consultation. Please call me if you have any questions. Larry Murguia MD, FACP, FACC, FSCAI, FHRS, CCDS Interventional Cardiology Cardiac Electrophysiology Vascular Medicine and Endovascular Interventions Susannah MURGUIA MD Jun 22, 2016 10:28 pm
[2016-06-23] VITALS: BP 137/84
[2016-06-23] MEDS: clonazePAM 0.5 MG (KlonoPIN) TAB PO PRN ×2 (03:56→16:20)
[2016-06-23 06:36] LABS: BASOPHILS % (AUTO) 0 % (0-10); EOSINOPHILS # (AUTO) 0.1 10^3/uL (0.0-0.3); EOSINOPHILS % (AUTO) 2 % (0-10); LYMPHOCYTES % (AUTO) 18 % (12-44); MEAN CORPUSCULAR HEMOGLOBIN 26 PG (25-34); MEAN CORPUSCULAR HGB CONC 32 G/DL (32-36); MEAN CORPUSCULAR VOLUME 82 FL (80-99); MEAN PLATELET VOLUME 9.3 FL (7.4-10.4); MONOCYTES # (AUTO) 0.6 X 10^3 (0.0-1.0); MONOCYTES % (AUTO) 10 % (0-12); NEUTROPHILS % (AUTO) 70 % (42-75); PLATELET COUNT 376 10^3/uL (130-400); RED BLOOD COUNT 4.64 10^6/uL (4.35-5.85); RED CELL DISTRIBUTION WIDTH 16.1 % (10.0-14.5); WHITE BLOOD COUNT 5.7 10^3/uL (4.3-11.0)
[2016-06-23 06:37] LABS: INR 1.5 (0.8-1.4); PROTHROMBIN TIME PATIENT 18.1 SEC (12.2-14.7)
[2016-06-23 07:00] LABS: ALANINE AMINOTRANSFERASE 65 U/L (0-55); ALBUMIN 3.4 G/DL (3.2-4.5); ANION GAP 12 MMOL/L (5-14); ASPARTATE AMINO TRANSFERASE 36 U/L (5-34); BILIRUBIN,TOTAL 0.7 MG/DL (0.1-1.0); BLOOD UREA NITROGEN 13 MG/DL (7-18); BUN/CREATININE RATIO 17; CALCIUM 8.9 MG/DL (8.5-10.1); CARBON DIOXIDE 27 MMOL/L (21-32); CHLORIDE 95 MMOL/L (98-107); CREATININE SERUM 0.77 MG/DL (0.60-1.30); GFR ESTIMATED > 60; GLUCOSE 121 MG/DL (70-105); MAGNESIUM 1.5 MG/DL (1.8-2.4); POTASSIUM 3.5 MMOL/L (3.6-5.0); SODIUM 134 MMOL/L (135-145); TOTAL PROTEIN 7.4 G/DL (6.4-8.2)
[2016-06-23] MEDS: inSUlin ASPART (NovoLOG) 1 UNIT/0.01 ML (CHARGE PER UNIT) SC SCH ×4 (07:03→21:00)
[2016-06-23] MEDS: DILTIAZEM 240 MG (CARDIZEM CD) CAP PO SCH (07:50)
[2016-06-23] MEDS: meTOproloL SUCCINATE 50 MG (TOPROL XL) TAB PO SCH ×2 (07:50→21:35)
[2016-06-23] MEDS: BISACODYL 10 MG SUPP (DULCOLAX) PR SCH ×2 (07:50→21:35)
[2016-06-23] MEDS: cefTRIAXone INJECTION 1,000 MG in NS (IVPB) 50 ML IV SCH (07:50)
--- NOTE | 2016-06-23 09:08 | Cardiology Progress Note ---
Subjective Subjective/Events-last exam patient is sitting up in a chair, feeling better, denied in chest pain or shortness of breath. No palpitation. Review of Systems General: No Chills, No Night Sweats, No Fatigue, No Malaise, No Appetite, No Other HEENT: No Head Aches, No Visual Changes, No Eye Pain, No Ear Pain, No Dysphasia , No Sinus Congestion, No Post Nasal Drip, No Sore Throat, No Other Pulmonary: No Dyspnea, No Cough, No Pleuritic Chest Pain, No Other Cardiovascular: No: Chest Pain, Edema, Lt Headedness, Orthopnea, Other, Palpitations, Paroxysmal Noc. Dyspnea Objective-Cardiology Exam Last Set of Vital Signs Vital Signs 06/22/16 06/23/16 06/23/16 04:51 00:00 01:00 Temp 98.1 Pulse 70 Resp 18 B/P 137/84 Pulse Ox 96 O2 Delivery Room Air O2 Flow Rate 2.00 Capillary Refill : I&O Intake and Output 06/23/16 00:00 Intake Total 760 ml Output Total 1500 ml Balance -740 ml Intake Oral 760 ml Output Urine Total 1500 ml # Voids 5 General: Alert, Oriented X3, Cooperative HEENT: Atraumatic, PERRLA Neck: Supple, No JVD, No Thyromegaly Lungs: Clear to Auscultation, Normal Air Movement Heart: Normal S1, Normal S2, No Murmurs, Other (irregular) Abdomen: Normal Bowel Sounds, Soft, No Tenderness, No Hepatosplenomegaly, No Masses Extremities: No Clubbing, No Cyanosis, No Edema, Normal Pulses, No Tenderness/ Swelling Skin: No Rashes, No Breakdown, No Significant Lesion Neuro: Normal Gait, Normal Speech, Strength at 5/5 X4 Ext, Normal Tone, Sensation Intact Psych/Mental Status: Mental Status NL, Mood NL Results Lab Laboratory Tests 06/23/16 05:30 A/P-Cardiology Admission Diagnosis atrial fibrillation Hypomagnesemia Hyponatremia Urinary tract infection Hypertension Assessment/Plan Atrial fibrillation, rate is better controlled, continue on Cardizem and Toprol , INR is subtherapeutic, maintained on Coumadin 3 mg daily, I will give 4 mg daily today and monitor INR. Hypomagnesemia, replace and monitor. Urinary tract infection, managed by primary care physician Hypertension, controlled at this time, tolerating current medication, continue to monitor Dementia Diabetes mellitus, followed and managed by primary care physician Hyponatremia, secondary to SIADH, improving, has been off hydrochlorothiazide. Continue to monitor Clinical Quality Measures DVT/VTE Risk/Contraindication: Risk Factor Score Per Nursin RFS Level Per Nursing on Admit: 2=Moderate HANNY WHEATLEY MD Jun 23, 2016 09:08
[2016-06-23] MEDS ORDERED: MAGNESIUM 1 GM/100 ML IVPB 100 ML IV ONE (09:15)
[2016-06-23] MEDS ORDERED: MAGNESIUM OXIDE (MAG-OX)400 MG TAB PO ONE (09:15)
[2016-06-23 09:37] VITALS: BP 140/67
--- NOTE | 2016-06-23 11:54 | Physical Therapy Daily Note ---
PT Daily Note-Current Subjective Pt denies pain. Pt agreeable to treatment. Mental Status Patient Orientation: Person, Confused Pt comments "I think I am in [place] but I don't know where." Pt seems somewhat confused. Not sure where she lives. Pt reports she has a daughter but doesn't remember where she lives. Transfers Functional [place] Measure 0=Not Assessed/NA 4=Minimal Assistance 1=Total Assistance 5=Supervision or Setup 2=Maximal Assistance 6=Modified [place] 3=Moderate Assistance 7=Complete IndependenceIRFPAI Quality Coding Scale 6 Independent with activity with or without an assistive device 5 Patient requires set up or clean up by helper. Patient completes activity by themselves 4 Supervision or touching assist (CGA). [place] provide cues , steadying assist 3 The helper provides less than half the effort to complete the activity 2 The helper provides more than half the effort to complete the activity 1 Dependent. The helper does all the effort to complete an activity 7 Patient refused to complete or attempt activity 9 The patient did not perform the activity before the current illness or injury 88 Not attempted due to Medical conditions or safety concerns Gait Training Gait Assistive Device: Walker 4 Wheeled PT amb with 4ww and CGA x 250ft, steady speed and steady balance throughout. Exercises Supine Ex: Ankle pumps, Heel Slides, Straight leg raise, Hip abd/add Supine Reps: 20 Treatments Pt seen for ther ex and gait training. Assessment Current Status: Good Progress PT mod I for all transfers and mobility. SOB with exertion, otherwise marianne well with rest breaks as needed. Pt back to chair, reclined with ambu alarm activated and call light in reach. PT Longterm Goals Bench Assembly Inspector Goals PT Bench Assembly Inspector Goals Time Frame: Jun 29, 2016 Transfers (B,C,W/C) (FIM): 6 Gait (FIM): 6 Distance: 300' Gait Assistive Device: Walker 4 Wheeled PT Plan Treatment/Plan Treatment Plan: Continue Plan of Care Treatment Plan: Bed Mobility, Education, Functional Activity Yaakov, Functional Strength, Gait, Safety, Therapeutic Exercise, Transfers Treatment Duration: Jun 29, 2016 Visits Per Week: 5-6 Minutes/Day (M-F): 15-30 Minutes/Day (Sat/[place]): 15-30 Time/GCodes Time In: 1120 Time Out: 1145 Total Billed Treatment Time: 25 Total Billed Treatment 1, gait 15 min, ther ex 10 min MAU SEGOVIA CPTA Jun 23, 2016 11:54
[2016-06-23 12:15] VITALS: BP 136/68
--- NOTE | 2016-06-23 13:06 | Progress Note-Hospitalist ---
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 She is quite vague about when this may have become a problem. She states that she hadn 't felt well for perhaps a month. This is primarily as a function of weakness and breathlessness at minimum exertion. She was found to have atrial fibrillation with a rapid ventricular response. Management has been somewhat compromised by a tendency towards hypotension with the usual medications. Physical exam: She states that she is beginning to feel depressed about all of this. Lungs are clear to auscultation. CV is irregular but with controlled rate. Extremities show no edema. Impression: Atrial fibrillation with rapid ventricular response now controlled Plan: Begin ambulation Labs Laboratory Tests 06/22/16 04:00 06/23/16 05:30 LAURA NEVAREZ MD Jun 23, 2016 13:06
[2016-06-23 15:58] VITALS: BP 129/78
[2016-06-23] MEDS: warFARin 2 MG (COUMADIN) TAB PO SCH (17:11)
[2016-06-23] MEDS: MAGNESIUM OXIDE (MAG-OX)400 MG TAB PO SCH (17:13)
[2016-06-23 20:11] VITALS: BP 148/71
[2016-06-24] VITALS: BP 135/78
[2016-06-24 04:53] LABS: INR 1.6 (0.8-1.4); PROTHROMBIN TIME PATIENT 18.8 SEC (12.2-14.7)
[2016-06-24 05:37] LABS: ANION GAP 11 MMOL/L (5-14); BLOOD UREA NITROGEN 22 MG/DL (7-18); BUN/CREATININE RATIO 29; CALCIUM 8.4 MG/DL (8.5-10.1); CARBON DIOXIDE 25 MMOL/L (21-32); CHLORIDE 97 MMOL/L (98-107); CREATININE SERUM 0.76 MG/DL (0.60-1.30); GFR ESTIMATED > 60; GLUCOSE 157 MG/DL (70-105); MAGNESIUM 1.3 MG/DL (1.8-2.4); POTASSIUM 3.5 MMOL/L (3.6-5.0); SODIUM 133 MMOL/L (135-145)
[2016-06-24] MEDS: inSUlin ASPART (NovoLOG) 1 UNIT/0.01 ML (CHARGE PER UNIT) SC SCH ×3 (06:00→16:00)
[2016-06-24 08:00] VITALS: BP 140/88
[2016-06-24] MEDS: cefTRIAXone INJECTION 1,000 MG in NS (IVPB) 50 ML IV SCH (08:00)
[2016-06-24] MEDS: LACTULOSE SYRUP 10GM/15ML (ENULOSE) 30ML UDC PO PRN (08:00)
[2016-06-24] MEDS: DILTIAZEM 240 MG (CARDIZEM CD) CAP PO SCH (08:00)
[2016-06-24] MEDS: meTOproloL SUCCINATE 50 MG (TOPROL XL) TAB PO SCH (08:00)
[2016-06-24] MEDS: MAGNESIUM OXIDE (MAG-OX)400 MG TAB PO SCH ×2 (08:01→16:45)
[2016-06-24] MEDS: BISACODYL 10 MG SUPP (DULCOLAX) PR SCH (09:00)
[2016-06-24] MEDS ORDERED: KCL 20 MEQ TAB (K-DUR) PO ONE (11:30)
[2016-06-24] MEDS ORDERED: ENOXAPARIN 60 MG/0.6 ML (LOVENOX) SYR SC ONE (11:30)
--- NOTE | 2016-06-24 11:34 | Progress Note-Cardiology ---
Cardiology SOAP Progress Note Subjective: She does not report cp or palp or syncope or leg swelling Objective: I&O/Vital Signs Vital Sign - Last 12Hours 06/24/16 06/24/16 06/24/16 06/24/16 00:00 01:00 07:00 08:00 Temp 98.7 97.3 Pulse 88 94 84 105 Resp 20 18 B/P 135/78 140/88 Pulse Ox 99 97 O2 Delivery Room Air Room Air Intake and Output 06/24/16 00:00 Intake Total 730 ml Balance 730 ml Weight (Pounds): 178 Weight (Ounces): 0.0 Weight (Calculated Kilograms): 80.067357 Constitutional: well-developed well-nourished Respiratory: No accessory muscle use, lungs clear to percussion lungs clear to auscultation Cardiovascular: irregularly irregular S1 and S2 systolic murmur (faint ADAN at card base) Gastrointestional: No tender, No guarding, No rebound, audible bowel sounds Extremities: No clubbing, No cyanosis, No significant edema Neurologic/Psychiatric: grossly intact power is 5/5 both on sides Skin: No rash on exposed areas, No ulcerations on exposed areas Results/Procedures: Labs Laboratory Tests 06/23/16 16:01: Glucometer 237H 06/23/16 21:07: Glucometer 168H 06/24/16 04:23: Anion Gap 11, BUN/Creatinine Ratio 29, Blood Urea Nitrogen 22H, Calcium Level 8.4L, Carbon Dioxide Level 25, Chloride Level 97L, Creatinine 0.76, Estimat Glomerular Filtration Rate > 60, Glucose Level 157H, INR Comment 1.6H, Magnesium Level 1.3L, Potassium Level 3.5L, Prothrombin Time 18.8H, Sodium Level 133L 06/24/16 05:46: Glucometer 160H Microbiology 06/19/16 Blood Culture - Preliminary, Resulted No growth 06/20/16 Urine Culture - Final, Complete Escherichia Coli Laboratory Tests 06/23/16 05:30 06/24/16 04:23 A/P: Assessment: Atrial fibrillation, rate controlled Subtherapeutic INR Electrolyte abnormalities, prob due to diuretic use Urinary tract infection, managed by PCP Hypertension, controlled Dementia Diabetes mellitus, followed and managed by PCP Plan: Replenish lytes Additional warfarin Enoxaparin today Monitor labs MAURA SAGE MD FACP FACC CCDS Jun 24, 2016 11:34
[2016-06-24] MEDS ORDERED: MILK OF MAGNESIA 400 MG/5 ML 30 ML UDC PO SCH (11:47)
[2016-06-24] MEDS ORDERED: GLIMEPIRIDE 2 MG (AMARYL) TAB PO SCH (11:47)
[2016-06-24] MEDS ORDERED: PANTOPRAZOLE 20 MG TABLET (PROTONIX) PO SCH (11:48)
[2016-06-24] MEDS ORDERED: clonazePAM 0.5 MG (KlonoPIN) TAB PO SCH (11:49)
[2016-06-24] MEDS ORDERED: DILT240C90 PO (11:49)
[2016-06-24] MEDS ORDERED: WARF2TAB PO (11:49)
[2016-06-24] MEDS ORDERED: METO-272 PO (11:49)
--- NOTE | 2016-06-24 11:52 | Discharge Summary-Hospitalist ---
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 Murguia Review: Restarted Toprol XL of 50mg last night Cardizem CD 240 and top load 50 HR 108 and will likely come down, and pt may DC this weekend if able Patient Interview: Pt states that she feels better today. Dr. Diego informs pt that she will remain at [facility] a few more days in order to monitor cardiac complications, and will likely move to [place] on Saturday. Pt's bowels have not moved recently. Pt states that she has not been eating much. No fever, vital stable, pleasant, confused but no change Irregular irregular rhythm with tachycardia of 103 bpm on my exam clear to auscultation bilaterally Laboratory Tests 06/22/16 04:00 Assessment: Atrial fibrillation with rapid ventricular response with hypotension limiting rate control meds to [facility] transferred to ICU for higher level care and cardiology expertise now off Cardizem drip that having rapid ventricular response with activity now started on Toprol-XL 50 MG along with Cardizem 240 MG CD Dementia Mental retardation Diabetes mellitus Acute UTI E coli sensitive to Rocephin will finish on Saturday Elevated BNP likely due to volume overload Hypertension history on low-dose lisinopril Multiple falls Severe neuropathy 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 Cardizem CD 240 and top load 50 Started Toprol of 50 Move to 4th floor on telemetry. Maintain PO Cardizem per cardiology input Maintain on Rocephin for UTI until DC Saturday Fluid restriction for sodium level of 123 now on 1000 mL a day and 130 today Monitor blood pressure closely Monitor closely due to elevated HR Bowel regimen PT/OT Scribed by Yanick Olivo under the direct supervision of Dr. Diego. Reason Hospital Visit/Course CC: Atrial fibrillation with rapid ventricular response HPI: This is a 70-year-old white female assisted patient of Dr. Bee and os week ago with a past medical history of diabetes mellitus chronic renal insufficiency and dementia with mild mental retardation the presents to the [facility] ICU as a direct admission from [facility] behavioral unit. She had originally been set to be admitted to the senior unit for behavior problems and depression that detoured to ICU at [facility] due to age fibrillation with rapid ventricular response placed on Cardizem drip overnight but hypotension was noted in that drip was managed gently due to the fact of the hypotension. She was placed on low dose Cardizem a 60 MG that she was on at home in addition to very gentle dose of Lopressor 25 MG by mouth 1 and then 1 dose of digoxin of 125 g but then she was transferred the [facility] behavioral unit began having hypotension with mild dizziness so she was given IV fluids of normal saline at 100 mL an hour and monitor closely throughout the day and overall improved received 1 more dose of 125 g of digoxin but then began getting out of bed and more active and her heart rate resumed to the 140 range. Her hypotension precluded me for managing this without cardiology expertise so she was sent to [facility] even though she is DO NOT RESUSCITATE due to the fact that the A. fib with RVR required management from a rhythm specialist. Hospital course: Patient had a lengthy hospital course due to the fact of the hypotension precluded aggressive rate control with Cardizem and other medications. Cardiology did evaluate her and manage her aggressively ultimately placing her on Cardizem CD 240 MG along with Toprol XL 50 MG twice daily with good rate control. Coumadin therapy was adjusted but fell below therapeutic so was managed properly in addition completed Rocephin therapy for 5 days of IV antibiotics for resistant type Escherichia coli and overall improved enough to be able to go to the senior unit for psych management. Discharge Summary Discharge Physical Examination Allergies: Coded Allergies: Penicillins (Verified Allergy, Unknown, 06/19/16) pioglitazone (Verified Allergy, Unknown, 06/19/16) pramipexole (Verified Allergy, Unknown, 06/19/16) ropinirole (Verified Allergy, Unknown, 06/19/16) Vitals & I&Os Vital Signs Date Time Temp Pulse Resp B/P Pulse Ox O2 Delivery O2 Flow Rate FiO2 06/24/16 17:30 06/24/16 13:00 79 06/24/16 08:00 97.3 18 97 Room Air 06/22/16 04:51 2.00 Hospital Course Labs (last 24 hrs) Laboratory Tests 06/24/16 16:25: Glucometer 162H Microbiology 06/19/16 Blood Culture - Preliminary, Resulted No growth 06/20/16 Urine Culture - Final, Complete Escherichia Coli Pending Labs Discharge Home Medications: Active Scripts Active Diltiazem 24Hr Cd (Diltiazem HCl) 240 Mg Cap.er.24h 240 Mg PO DAILY 30 Days Metoprolol Succinate 50 Mg Tab.er.24h 50 Mg PO BID 30 Days Coumadin (Warfarin Sodium) 2 Mg Tablet 4 Mg PO DAILY@1800 30 Days Reported Caltrate 600 + D Tablet (Calcium Carbonate/Vitamin D3) 1 Each Tablet 1 Tab PO BID Milk of Magnesia (Magnesium Hydroxide) 400 Mg/5 Ml Oral.susp 30 Ml PO DAILY Metformin HCl ER (Metformin HCl) 500 Mg Tab.er.24h 1,000 Mg PO BID TAKES 2 (500 MG) TABLETS Clonazepam 0.5 Mg Tablet 0.25 Mg PO BID TAKES 1/2 OF A (0.5 MG) TABLET Glimepiride 2 Mg Tablet 2 Mg PO DAILY Duloxetine HCl 60 Mg Capsule.dr 60 Mg PO DAILY Pravastatin Sodium 80 Mg Tablet 80 Mg PO HS Omeprazole 20 Mg Capsule.dr 20 Mg PO DAILY Instructions to patient/family Please see electonic discharge instructions given to patient. Clinical Quality Measures DVT/VTE Risk/Contraindication: Risk Factor Score Per Nursin RFS Level Per Nursing on Admit: 2=Moderate OLI DIEGO DO Jun 24, 2016 11:51
[2016-06-24] MEDS ORDERED: DULoxetine 30 MG (CYMBALTA) CAP PO SCH (12:00)
[2016-06-24] MEDS: MAGNESIUM 1 GM/100 ML IVPB 100 ML IV SCH ×2 (12:27→12:58)
[2016-06-24] MEDS: warFARin 2 MG (COUMADIN) TAB PO SCH (16:45)
[2016-06-24] MEDS ORDERED: metFORMIN XR 500 MG (GLUCOPHAGE XR) TAB PO SCH (21:00)
[2016-06-24] MEDS ORDERED: ATORVASTATIN 20 MG (LIPITOR) TABLET PO SCH (21:00)
== END 2016-06-24 17:30 | DRG 309 ==
LOC: ICU 18:05 → 4TH 06-22 09:30
PROVIDERS: ADMIT Internal Medicine; ATTEND Internal Medicine
DX: I48.91 Unspecified atrial fibrillation (principal); I95.9 Hypotension, unspecified; N39.0 Urinary tract infection, site not specified; B96.20 Unspecified Escherichia coli [E. coli] as the cause of diseases classified elsewhere; E22.2 Syndrome of inappropriate secretion of antidiuretic hormone; F03.91 Unspecified dementia, unspecified severity, with behavioral disturbance; I12.9 Hypertensive chronic kidney disease with stage 1 through stage 4 chronic kidney disease, or unspecified chronic kidney disease; N18.9 Chronic kidney disease, unspecified; Z66 Do not resuscitate; E11.40 Type 2 diabetes mellitus with diabetic neuropathy, unspecified; F70 Mild intellectual disabilities; F32.9 Major depressive disorder, single episode, unspecified; F41.9 Anxiety disorder, unspecified; E87.70 Fluid overload, unspecified; E78.00 Pure hypercholesterolemia, unspecified; E83.42 Hypomagnesemia; R53.81 Other malaise; R79.1 Abnormal coagulation profile; K59.09 Other constipation; H91.90 Unspecified hearing loss, unspecified ear; C55 Malignant neoplasm of uterus, part unspecified; R29.6 Repeated falls; Z79.4 Long term (current) use of insulin
CPT/HCPCS: 36415; 71010; 80048; 80053; 81000; 82962; 83605; 83735; 83880; 84100; 84295; 85025; 85610; 87040; 87077; 87088; 87186; 93005